=== PATIENT | male | born 1990 | race Caucasian/White ===

== ENCOUNTER 2017-08-26 14:59 | Emergency (ER) | payer BC ==
[2017-08-26 15:49] VITALS: BP 130/81
[2017-08-26] MEDS ORDERED: BSS OPTH.SOL* BTL ONE (15:52)
[2017-08-26] MEDS ORDERED: Fluorescein Sodium TOPICAL* 1 MG TEST ONE (15:52)
[2017-08-26] MEDS ORDERED: Tetracaine 0.5% OPTH.SOL 4 ML* 1 DROP BTL ONE (15:52)
[2017-08-26] MEDS ORDERED: Eye Irrigation Solution 30 ML BOTTLE RIGHT EYE ONE (16:21)
[2017-08-26] MEDS ORDERED: Tetracaine 0.5% OPTH.SOL 4 ML* 1 DROP BTL RIGHT EYE ONE (16:21)
[2017-08-26] MEDS ORDERED: Fluorescein Sodium TOPICAL* 1 MG TEST OPHTHALMIC ONE (16:21)
--- NOTE | 2017-08-26 18:11 | UC ---
Eye Complaint HPI - HPI Summary HPI Summary: WORKING WITH METAL SIDING ABOVE HEAD AT 1PM. CONCERN, WHILE LOOKING UP THAT HE MAY HAVE DEBRIS IN RIGHT EYE. IRRITATION, DISCOMFORT AND TEARFUL DISCHARGE. NO CHANGE IN VISION. - History of Current Complaint Chief Complaint: UCEye Stated Complaint: RIGHT EYE Time Seen by Provider: 08/26/17 15:44 Hx Obtained From: Patient Onset/Duration: Sudden Onset, Lasting Hours Severity Initially: Moderate Severity Currently: Moderate Pain Intensity: 8 Pain Scale Used: 0-10 Numeric Location of Injury: Conjunctiva Character: Dull, Foreign Body Sensation Aggravating Factor(s): Light, Blinking Associated Signs And Symptoms: Positive: Photophobia, Drainage (Clear) - Risk Factors Penetrating Injury Risk Factor: Negative Globe Rupture Risk Factors: Negative Acute Glaucoma Risk Factors: Eye Inflammation Optic Artery Occlusion Risk Factors: Negative - Allergies/Home Medications Allergies/Adverse Reactions: Allergies Allergy/AdvReac Type Severity Reaction Status Date / Time No Known Allergies Allergy Verified 08/26/17 15:49 PMH/Surg Hx/FS Hx/Imm Hx Previously Healthy: Yes - Surgical History Surgical History: Yes Surgery Procedure, Year, and Place: Hernia surgery age 14 - Family History Known Family History: Negative: Diabetes - Social History Occupation: Employed Full-time Lives: With Family Alcohol Use: None Substance Use Type: None Smoking Status (MU): Never Smoked Tobacco Review of Systems Constitutional: Negative Skin: Negative Eyes: Drainage, Eye Redness ENT: Negative Respiratory: Negative Cardiovascular: Negative Gastrointestinal: Negative Genitourinary: Negative Motor: Negative Neurovascular: Negative Musculoskeletal: Negative Neurological: Negative Psychological: Negative Is Patient Immunocompromised?: No All Other Systems Reviewed And Are Negative: Yes Physical Exam Triage Information Reviewed: Yes Appearance: Well-Appearing, No Pain Distress, Well-Nourished Vital Signs: Initial Vital Signs Temp 98.5 F 08/26/17 15:42 Pulse 70 08/26/17 15:42 Resp 16 08/26/17 15:42 BP 130/81 08/26/17 15:42 Pulse Ox 100 08/26/17 15:42 Eyes: Positive: Conjunctiva Inflamed, Discharge, Other: - FLUORESCEIN UPTAKE 4 OCLOCK RIGHT EYE. SMALL 0.5mm X 0.5 mm POSSIBLY METAL FB EMBEDDED IN CORNEA AT 4 OCLOCK. UNABLE TO COMPLETELY EXPEL WITH COTTON SWAB. NEGATIVE SIDEL'S SIGN. ENT Exam: Normal ENT: Positive: Normal ENT inspection, Hearing grossly normal, Pharynx normal, TMs normal Dental Exam: Normal Neck exam: Normal Neck: Positive: Supple, Nontender Respiratory Exam: Normal Respiratory: Positive: Chest non-tender, Lungs clear, Normal breath sounds, No respiratory distress, No accessory muscle use Cardiovascular Exam: Normal Cardiovascular: Positive: RRR, No Murmur Abdominal Exam: Normal Abdomen Description: Positive: Nontender, No Organomegaly Musculoskeletal Exam: Normal Musculoskeletal: Positive: Strength Intact, ROM Intact Neurological Exam: Normal Psychological Exam: Normal Psychological: Positive: Normal Response To Family Skin Exam: Normal Procedures - Procedure Summary Procedure Summary: FLUORESCEIN UPTAKE 4 OCLOCK RIGHT EYE. SMALL 0.5mm X 0.5 mm POSSIBLY METAL FB EMBEDDED IN [place]NE[place] AT 4 OCLOCK. UNABLE TO COMPLETELY EXPEL WITH COTTON SWAB. NEGATIVE SIDEL'S SIGN. Eye Complaint Course/Dx - Course Course Of Treatment: SMALL 0.5mm X 0.5 mm POSSIBLY METAL FB EMBEDDED IN [place] AT 4 OCLOCK WITH FLUORESCEIN UPTAKE. UNABLE TO COMPLETELY EXPEL WITH COTTON SWAB. NEGATIVE SIDEL'S SIGN. REFERRED TO OPTHALMOLOGY. - Differential Dx/Diagnosis Differential Diagnosis/HQI/PQRI: Conjunctivitis, Corneal Abrasion, Foreign Body Provider Diagnoses: RIGHT EYE CORNEAL ABRASION, SMALL 0.5mm X 0.5 mm POSSIBLY METAL FB EMBEDDED IN [place] AT 4 OCLOCK. - Physician Notification/Consults Instructed by Provider To: Have Pt Call For Appt. Discharge - Discharge Plan Condition: Stable Disposition: HOME Prescriptions: Tobramycin 0.3% OPHTH.MISTI* 1 drop RIGHT EYE Q4H #1 btl Patient Education Materials: Corneal Abrasion (ED), Eye Foreign Body (ED) Forms: *Work Release Referrals: Phil WILSON,Parul [Medical Doctor] -
== END 2017-08-26 16:49 | disposition home or self-care (01) ==
LOC: UCCORT 14:59 → EDBD 14:59 → UCCORT 16:49
DX: T15.01XA Foreign body in cornea, right eye, initial encounter (principal); S00.251A Superficial foreign body of right eyelid and periocular area, initial encounter; W22.8XXA Striking against or struck by other objects, initial encounter; Y93.9 Activity, unspecified; Y92.9 Unspecified place or not applicable; Y99.9 Unspecified external cause status
CPT/HCPCS: 99212; A9270-GY; G0463

== ENCOUNTER 2020-02-05 17:00 | Emergency (ER) | payer BC ==
--- NOTE | 2020-02-05 18:12 | UC ---
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 The injury happened last evening and caused a skin avulsion just below the nail. The nail itself is intact. He was sent here by his because he wasn't sure when he had his last tetanus immunization. He did have the "whooping cough vaccine" which I reassured him was the Tdap immunization, 4 years ago. - History Of Current Complaint Stated Complaint: RIGHT FINGER LACERATION Time Seen by Provider: 02/05/20 17:43 Hx Obtained From: Patient Laceration Location: Finger Mechanism Of Injury: Sharp Trauma Onset/Duration: Sudden Onset Severity: Mild Aggravating Factors: Nothing Hands: 1 - superficial skin avulsion - Allergies/Home Medications Allergies/Adverse Reactions: Allergies Allergy/AdvReac Type Severity Reaction Status Date / Time Iodine and Iodide Containing Allergy Severe Anaphylatic Verified 02/05/20 18:03 Produc Shock Home Medications: Home Medications EPINEPHrine [Epipen] 0.3 mg IJ PRN 02/05/20 [History] Meclizine TAB* [Antivert 12.5 TAB*] 12.5 mg PO TID PRN 02/05/20 [History Confirmed 02/05/20] PMH/Surg Hx/FS Hx/Imm Hx Previously Healthy: Yes - Surgical History Surgical History: Yes Surgery Procedure, Year, and Place: Hernia surgery age 14 - Family History Known Family History: Negative: Diabetes - Social History Occupation: Employed Full-time Lives: With Family Alcohol Use: None Substance Use Type: None Smoking Status (MU): Never Smoked Tobacco Review of Systems All Other Systems Reviewed And Are Negative: Yes Skin: Positive: Other - Superficial skin avulsion to distal right index finger which happened last evening. The patient has been putting triple antibiotic on it with a bulky dressing. Is Patient Immunocompromised?: No Physical Exam Triage Information Reviewed: Yes Appearance: Well-Appearing, No Pain Distress, Well-Nourished Vital Signs Reviewed: Yes Musculoskeletal: Positive: Strength Intact, ROM Intact, Other: - Good peripheral pulses, neuro sensation and capillary refill. Full range of motion with good flexion and extension against resistance. Neurological Exam: Normal Psychological Exam: Normal Skin: Positive: Other - Superficial skin avulsion to the distal right index finger below the nail, not including the nail. The fingernail itself is intact. No evidence of infection. Laceration Course/Dx - Course/Dx Course Of Treatment: The patient is comfortable here. Bacitracin dressing was applied. The patient had a Tdap immunization 4 years ago. He is to change the Band-Aid every day and watch for signs of infection which were reviewed with the patient. - Diagnosis Provider Diagnosis: Avulsion of skin of index finger Discharge ED - Sign-Out/Discharge Documenting (check all that apply): Patient Departure All imaging exams completed and their final reports reviewed: No Studies - Discharge Plan Condition: Good Disposition: HOME Patient Education Materials: Skin Avulsion (ED) Referrals: Elvis Cortez MD [Primary Care Provider] - Additional Instructions: Change the dressing daily. Let the area "air out" when you are home. Keep it clean and dry. Watch for signs of infection such as hot, red, tender, pus drainage or red streaks. Your tetanus is up-to-date. Follow-up with your primary care provider as needed. - Billing Disposition and Condition Condition: GOOD Disposition: Home
[2020-02-05 18:14] VITALS: BP 138/82
== END 2020-02-05 18:43 | disposition home or self-care (01) ==
LOC: UCCORT 17:00
DX: S61.210A Laceration without foreign body of right index finger without damage to nail, initial encounter (principal); W26.9XXA Contact with unspecified sharp object(s), initial encounter; Y93.89 Activity, other specified; Y92.9 Unspecified place or not applicable; Z88.3 Allergy status to other anti-infective agents
CPT/HCPCS: 99212; G0463